=== PATIENT | male | born 1990 | race American Indian/Alaskan Native ===

== ENCOUNTER 2016-10-07 07:03 | Emergency (ER) | payer OTHER ==
[2016-10-07 08:03] LABS: Anion Gap 17 mmol/L; BUN/Creatinine Ratio 11.81; Blood Urea Nitrogen 13 mg/dL (9-20); Calcium 9.4 mg/dL (8.4-10.2); Carbon Dioxide 25 mmol/L (22-30); Chloride 91.4 mmol/L (98-107); Glucose 108 mg/dL (75-100); Potassium 3.5 mmol/L (3.6-5.0); Sodium 130 mmol/L (137-145)
[2016-10-07 08:05] LABS: Basophils % (Auto) 0.4 % (0.0-1.8); Hemoglobin 12.9 gm/dl (11.8-15.2); Mean Corpuscular HGB Conc 33 % (32-34); Mean Corpuscular Volume 76 fl (84-94); Platelet Count 226 K/mm3 (140-440); Red Blood Count 5.11 M/mm3 (3.65-5.03); Red Cell Distribution Width 13.9 % (13.2-15.2); White Blood Count 12.7 K/mm3 (4.5-11.0)
[2016-10-07 08:13] LABS: Mean Corpuscular Hemoglobin 25 pg (28-32)
[2016-10-07 08:13] LABS: Bilirubin,Urine NEG (Negative); Blood,Urine SM (Negative); Ketones,Urine TR mg/dL (Negative); Leukocyte Esterase,Urine NEG (Negative); Mucus,Urine FEW /HPF; Nitrite,Urine NEG (Negative)
[2016-10-07] MEDS ORDERED: ROCEPHIN/NS 1 GM/50 ML 1 GM/50 ML BAG IV ONE (08:43)
[2016-10-07] MEDS ORDERED: NACL 0.9% 1000 ML 1,000 ML IV ONE (08:43)
--- NOTE | 2016-10-07 08:51 | Emergency Department Report ---
ED General Adult HPI - General Chief complaint: Nausea/Vomiting/Diarrhea Stated complaint: N/V/D/BACK PAIN/R EAR PAIN/HOT/COLD FLASHES Time Seen by Provider: 10/07/16 08:32 Source: patient Mode of arrival: Ambulatory Limitations: No Limitations - History of Present Illness Initial comments: Patient comes into the ER today with complaints of generalized body aches, fever , sore throat, right ear pain and generally just feeling bad. Patient does state that he's been able to tolerate fluids without any difficulties but states that every time he tries to eat he ends up vomiting it right back up. Patient denies any diarrhea, denies any obvious blood in his vomit. Patient has not been taking anything for his fever or body aches. Patient denies any known past medical problems. -: days(s) (3) Severity scale (0 -10): 8 - Related Data Previous Rx's Medication Instructions Recorded Last Taken Type Amoxicillin 1,000 mg PO BID #40 capsule 10/07/16 Unknown Rx traMADol [Ultram] 50 mg PO Q6HR PRN #20 tablet 10/07/16 Unknown Rx Allergies Allergy/AdvReac Type Severity Reaction Status Date / Time No Known Allergies Allergy Unverified 10/07/16 07:30 ED Review of Systems ROS: Stated complaint: N/V/D/BACK PAIN/R EAR PAIN/HOT/COLD FLASHES Other details as noted in HPI Constitutional: chills, fever Eyes: denies: eye pain, eye discharge, vision change ENT: ear pain, throat pain Respiratory: denies: cough, shortness of breath, wheezing Cardiovascular: denies: chest pain, palpitations, edema, syncope Endocrine: no symptoms reported Gastrointestinal: nausea, vomiting. denies: abdominal pain, diarrhea, constipation, hematemesis, hematochezia Genitourinary: denies: urgency, dysuria Musculoskeletal: denies: back pain, joint swelling, arthralgia Skin: denies: rash, lesions Neurological: denies: headache, weakness, paresthesias Psychiatric: denies: anxiety, depression Hematological/Lymphatic: denies: easy bleeding, easy bruising ED Past Medical Hx - Past Medical History Previous Medical History?: No - Surgical History Past Surgical History?: No - Social History Smoking Status: Never Smoker Substance Use Type: Alcohol - Medications Home Medications: Home Medications Medication Instructions Recorded Confirmed Last Taken Type Amoxicillin 1,000 mg PO BID #40 capsule 10/07/16 Unknown Rx traMADol [Ultram] 50 mg PO Q6HR PRN #20 tablet 10/07/16 Unknown Rx ED Physical Exam - General Limitations: No Limitations General appearance: alert, in no apparent distress - Head Head exam: Present: atraumatic, normocephalic - Eye Eye exam: Present: normal appearance, PERRL - ENT ENT exam: Present: mucous membranes moist, normal external ear exam, other ( bilateral TM bulging without erythematous. Bilateral ear canals are clear and without obstruction. Posterior pharynx is erythematous with mild swelling. Bilateral nasal mucosa with turbinate swelling and redness noted.) - Neck Neck exam: Present: normal inspection, tenderness, full ROM, lymphadenopathy ( bilateral tonsillar lymphadenopathy and tenderness). Absent: meningismus, thyromegaly - Respiratory Respiratory exam: Present: normal lung sounds bilaterally. Absent: respiratory distress, wheezes, rales, rhonchi, stridor, chest wall tenderness, accessory muscle use, decreased breath sounds - Cardiovascular Cardiovascular Exam: Present: regular rate, normal rhythm. Absent: systolic murmur, diastolic murmur, rubs, gallop - GI/Abdominal GI/Abdominal exam: Present: soft, normal bowel sounds. Absent: distended, tenderness, guarding, rebound, rigid - Rectal Rectal exam: Present: deferred - Extremities Exam Extremities exam: Present: normal inspection - Back Exam Back exam: Present: normal inspection - Neurological Exam Neurological exam: Present: alert, oriented X3, CN II-XII intact - Psychiatric Psychiatric exam: Present: normal affect, normal mood - Skin Skin exam: Present: warm, dry, intact, normal color. Absent: rash ED Course Vital Signs 10/07/16 10/07/16 10/07/16 07:26 08:33 08:34 Temperature 99.4 F 99.6 F Pulse Rate 96 H 91 H Respiratory 17 18 18 Rate Blood Pressure 132/80 Blood Pressure 131/77 [Left] O2 Sat by Pulse 100 98 98 Oximetry ED Medical Decision Making - Lab Data Result diagrams: 10/07/16 07:34 10/07/16 07:34 Lab Results 10/07/16 10/07/16 10/07/16 Range/Units 07:31 07:34 07:34 WBC 12.7 H (4.5-11.0) K/mm3 RBC 5.11 H (3.65-5.03) M/mm3 Hgb 12.9 (11.8-15.2) gm/dl Hct 39.0 (35.5-45.6) % MCV 76 L (84-94) fl MCH 25 L (28-32) pg MCHC 33 (32-34) % RDW 13.9 (13.2-15.2) % Plt Count 226 (140-440) K/mm3 Lymph % (Auto) 9.0 L (13.4-35.0) % [place] % (Auto) 14.7 H (0.0-7.3) % Eos % (Auto) 0.0 (0.0-4.3) % Baso % (Auto) 0.4 (0.0-1.8) % Lymph # 1.1 L (1.2-5.4) K/mm3 [place] # 1.9 H (0.0-0.8) K/mm3 Eos # 0.0 (0.0-0.4) K/mm3 Baso # 0.1 (0.0-0.1) K/mm3 Seg Neutrophils % 75.9 H (40.0-70.0) % Seg Neutrophils # 9.6 H (1.8-7.7) K/mm3 Sodium 130 L (137-145) mmol/L Potassium 3.5 L (3.6-5.0) mmol/L Chloride 91.4 L (98-107) mmol/L Carbon Dioxide 25 (22-30) mmol/L Anion Gap 17 mmol/L BUN 13 (9-20) mg/dL Creatinine 1.1 (0.8-1.5) mg/dL Estimated GFR > 60 ml/min BUN/Creatinine Ratio 11.81 % Glucose 108 H (75-100) mg/dL Calcium 9.4 (8.4-10.2) mg/dL Urine Color Anu (Yellow) Urine Turbidity Clear (Clear) Urine pH 6.0 (5.0-7.0) Ur Specific [place] 1.023 (1.003-1.030) Urine Protein 100 mg/dl (Negative) mg/dL Urine Glucose (UA) Neg (Negative) mg/dL Urine Ketones Tr (Negative) mg/dL Urine Blood Sm (Negative) Urine Nitrite Neg (Negative) Urine Bilirubin Neg (Negative) Urine Urobilinogen 4.0 (<2.0) mg/dL Ur Leukocyte Esterase Neg (Negative) Urine WBC (Auto) 3.0 (0.0-6.0) /HPF Urine RBC (Auto) 3.0 (0.0-6.0) /HPF Urine Mucus Few /HPF - Medical Decision Making Patient is nontoxic and hemodynamically stable. Physical exam of patient shows signs of a throat infection which I believe is most likely strep pharyngitis based on patient's symptoms. Patient has a benign abdominal exam with with no focal tenderness noted. Lab results reviewed and discussed with patient showing that he is experiencing some symptoms related to dehydration. Patient was given bolus of normal saline as well as IV Rocephin and IV Solu-Medrol here in the ER to expedite recovery time. I will discharge patient on continued oral antibiotic therapy and I have educated patient on proper control of fever. Patient is stable for discharge and and is agreement with treatment plan. Critical care attestation.: If time is entered above; I have spent that time in minutes in the direct care of this critically ill patient, excluding procedure time. ED Disposition Clinical Impression: Febrile illness, acute, Pharyngitis, Dehydration Disposition: DISCHARGED TO HOME OR SELFCARE Is pt being admited?: No Does the pt Need Aspirin: No Condition: Good Instructions: Dehydration (ED), Strep Throat (ED), Fever in Adults (ED) Prescriptions: Amoxicillin 1,000 mg PO BID #40 capsule traMADol [Ultram] 50 mg PO Q6HR PRN #20 tablet PRN Reason: Pain Referrals: PRIMARY CARE, [Primary Care Provider] - 3-5 Days Forms: Work/School Release Form(ED) Time of Disposition: 09:48
[2016-10-07 10:22] VITALS: BP 126/71
== END 2016-10-07 10:23 | disposition home or self-care (01) ==
LOC: ED 07:03
DX: E86.0 Dehydration (principal); R50.9 Fever, unspecified; J02.9 Acute pharyngitis, unspecified; H92.01 Otalgia, right ear
CPT/HCPCS: 36415; 80048; 81001; 85025; 96365; 96375; 99283; J0696; J2930; J7030